=== PATIENT | female | born 1995 | race Caucasian/White ===

== ENCOUNTER 2021-09-24 07:21 | Inpatient (IN) ==
[2021-09-24] MEDS ORDERED: Famotidine 20 MG/2 ML VIAL IVP PRN (08:10)
[2021-09-24] MEDS ORDERED: *HR* Nalbuphine 10 MG/ML AMPUL IV PRN (08:10)
[2021-09-24] MEDS ORDERED: Metoclopramide 10 MG/2 ML VIAL IVP PRN (08:10)
[2021-09-24] MEDS ORDERED: Naloxone 0.4 MG/ML INJ IVP PRN (08:10)
[2021-09-24] MEDS ORDERED: Ringers Solution, Lactated 1,000 ML IVC SCH (08:15)
[2021-09-24 08:59] LABS: Basophils % 0.3 %; Eosinophils # 0.1 K/mcL (0.0-0.6); Eosinophils % 0.5 %; Hematocrit 34.9 % (35.3-44.9); Hemoglobin 11.8 g/dL (11.5-15.4); Immature Granulocytes % 0.7 % (0-4); Lymphocytes % 19.8 %; Mean Corpuscular HGB Conc 33.8 g/dL (31.6-35.5); Mean Corpuscular Hemoglobin 28.4 pg (28.0-33.3); Mean Corpuscular Volume 84.1 fL (83.0-100.0); Mean Platelet Volume 9.9 fL (9.4-12.4); Monocytes # 0.6 K/mcL (0.0-1.3); Monocytes % 5.5 %; Neutrophils # 7.3 K/mcL (1.6-8.9); Platelet Count 274 K/mcL (140-400); Red Blood Count 4.15 M/mcL (3.82-4.97); Red Cell Distribution Width 13.7 % (11.5-14.5); Segmented Neutrophils % 73.2 %; White Blood Count 9.9 K/mcL (4.3-11.1)
[2021-09-24] MEDS ORDERED: Ropivacaine/PF 0.2% 20 ML VIAL EP ONE (09:49)
[2021-09-24] MEDS ORDERED: EPHEDrine 50 MG/ML VIAL IVP PRN (09:49)
[2021-09-24] MEDS ORDERED: *HR* FentaNYL (PF) 100 MCG/2 ML VIAL EP ONE (09:49)
[2021-09-24] MEDS ORDERED: Epidural Premix (fent/bupiv) 110 ML EP SCH (10:00)
[2021-09-24] MEDS ORDERED: Oxytocin 30 UNIT/503 ML BAG IVC SCH ×2 (13:15→22:26)
[2021-09-24 15:53] LABS: Amphetamine Screen,Urine Negative ng/mL (Cutoff=1000); Barbiturate Screen,Urine Negative ng/mL (Cutoff=200); Benzodiazepines Screen,Urine Negative ng/mL (Cutoff=200); Cannabinoid Screen,Urine Negative ng/mL (Cutoff = 50); Cocaine Screen,Urine Negative ng/mL (Cutoff= 300); Opiate Screen,Urine Negative ng/mL (Cutoff=300); Phencyclidine Screen,Urine Negative ng/mL (Cutoff=25)
[2021-09-24] MEDS ORDERED: OXYTOCIN/RINGERS LACTATE 10 UNIT/166.6 ML BAG IVC ONE (22:26)
[2021-09-24] MEDS ORDERED: Rho Immune Globulin 1,500 UNIT SYRINGE IM PRN (22:26)
[2021-09-24] MEDS ORDERED: Benzocaine/Menthol 56 GM AEROSOL SPRAY TP PRN (22:26)
[2021-09-24] MEDS ORDERED: Measles/Mumps/Rubella Vacc 0.5 ML VIAL SQ PRN (22:26)
[2021-09-24] MEDS ORDERED: Lanolin 7 G OINT...G. TP PRN (22:26)
[2021-09-24] MEDS ORDERED: Ondansetron ODT 4 MG TAB.RAPDIS SL PRN (22:26)
[2021-09-24] MEDS: Acetaminophen 325 MG TABLET PO SCH (23:50)
[2021-09-24] MEDS: Ibuprofen 600 MG TABLET PO SCH (23:50)
[2021-09-25 04:56] LABS: Basophils % 0.1 %; Eosinophils % 0.1 %; Hematocrit 33.1 % (35.3-44.9); Hemoglobin 11.3 g/dL (11.5-15.4); Immature Granulocytes % 0.5 % (0-4); Lymphocytes # 2.2 K/mcL (0.6-4.6); Lymphocytes % 12.7 %; Mean Corpuscular HGB Conc 34.1 g/dL (31.6-35.5); Mean Corpuscular Hemoglobin 28.5 pg (28.0-33.3); Mean Corpuscular Volume 83.4 fL (83.0-100.0); Mean Platelet Volume 9.9 fL (9.4-12.4); Monocytes # 0.8 K/mcL (0.0-1.3); Monocytes % 4.7 %; Neutrophils # 14.3 K/mcL (1.6-8.9); Platelet Count 287 K/mcL (140-400); Red Blood Count 3.97 M/mcL (3.82-4.97); Red Cell Distribution Width 13.6 % (11.5-14.5); Segmented Neutrophils % 81.9 %
[2021-09-25 05:01] LABS: White Blood Count 17.5 K/mcL (4.3-11.1)
[2021-09-25 05:10] VITALS: O2SAT 97
[2021-09-25 07:38] VITALS: BP 103/60; PULSE 63; TEMP 97.8
[2021-09-25] MEDS: Ibuprofen 600 MG TABLET PO SCH (08:35)
[2021-09-25] MEDS: Acetaminophen 325 MG TABLET PO SCH (08:36)
[2021-09-25] MEDS ORDERED: Prenatal Vit/FA 1 EACH TABLET PO SCH (09:00)
== END 2021-09-25 12:37 | disposition home or self-care (01) | DRG 807 ==
LOC: 1NENULAB 07:21 → 1NENUOBS 22:25
PROVIDERS: ADMIT Obstetrics & Gynecology; ATTEND Obstetrics & Gynecology